=== PATIENT | male | born 1945 | race Caucasian/White ===

== ENCOUNTER → 2016-07-01 | Outpatient (CLI) | payer OTHER, BC ==
[~2016-07-01] MED LIST: AMLO-110 PO; ASPI1TAB83 PO; ATV1 PO; GLIP-197 PO; LISI40TA PO; METO25TA3 PO; PRT/20 PO; RXC5 PO; SIMV20TA2 PO; XRL10 PO
== END | disposition home or self-care (01) ==
LOC: C.PATH 15:02
PROVIDERS: ATTEND Podiatrist
DX: E11.42 Type 2 diabetes mellitus with diabetic polyneuropathy (principal); M79.671 Pain in right foot; D36.7 Benign neoplasm of other specified sites

== ENCOUNTER → 2016-07-13 | Outpatient (CLI) | payer OTHER, BC ==
[2016-07-13 12:05] LABS: BASO % 0.3 %; BASO ABS # 0.02 K/uL (0-0.2); COMPLETE YES; EOS % 2.3 %; HEMATOCRIT 46.1 % (42-52); IG% 0.3 %; LYMPH % 13.5 %; LYMPH ABS # 1.04 K/uL (1.2-3.4); MEAN CELL VOLUME 88.7 fL (80-100); MEAN CORPUSCULAR HEMOGLOBIN 29.8 pg (25-34); MEAN CORPUSCULAR HGB CONC 33.6 g/dl (32-36); MEAN PLATELET VOLUME 10.8 fL (7.4-10.4); MONO % 8.4 %; NEUT % 75.2 %; PLATELET COUNT 249 K/uL (130-400)
[2016-07-13 12:30] LABS: ALT/SGPT 28 U/L (12-78); BLOOD UREA NITROGEN 25 mg/dl (7-18); BUN/CREATININE RATIO 17.8 (10-20); CALCIUM 9.2 mg/dl (8.5-10.1); CARBON DIOXIDE 28 mmol/L (21-32); CHLORIDE 104 mmol/L (98-107); CHOLESTEROL 114 mg/dl (0-200); GLUCOSE 106 mg/dl (70-99); POTASSIUM 4.1 mmol/L (3.5-5.1); SODIUM 139 mmol/L (136-145)
[2016-07-13 12:33] LABS: ALB/GLOB RATIO 1.1 (0.9-2); ALKALINE PHOSPHATASE 73 U/L (45-117); AST/SGOT 17 U/L (15-37); CHOLESTEROL/HDL RATIO 3.5; HDL CHOLESTEROL 33 mg/dl; LDL CHOLESTEROL CALCULATED 62 mg/dl; TRIGLYCERIDES 95 mg/dl (0-150); VERY LOW DENSITY LIPOPROT CALC 19 mg/dl
[2016-07-13 12:53] LABS: ESTIMATED AVERAGE GLUCOSE 128 mg/dl; HA1C FLAG Normal (Normal)
[2016-07-13 13:44] LABS: URINE PROTIEN/CREAT RATIO 0.4 (0-0.2); URINE TOTAL PROTEIN 80.7 mg/dl (0-11.9)
== END | disposition home or self-care (01) ==
LOC: C.LAB 11:21
PROVIDERS: ATTEND Family Medicine
DX: N18.3 Chronic kidney disease, stage 3 (moderate) (principal); E11.22 Type 2 diabetes mellitus with diabetic chronic kidney disease; M79.1 Myalgia; E78.00 Pure hypercholesterolemia, unspecified

== ENCOUNTER → 2017-02-28 | Outpatient (CLI) | payer OTHER, BC ==
--- NOTE | 2017-02-28 12:15 | DIAGNOSTIC IMAGING REPORT ---
R KNEE 1 OR 2 VIEWS ROUTINE CLINICAL HISTORY: 71 years-old Male presenting with M25.561 Chronic pain of right knee. TECHNIQUE: Frontal and crosstable lateral views of the right knee were obtained. COMPARISON: None. FINDINGS: Chondrocalcinosis. Tricompartmental degenerative change with medial joint space loss and subchondral sclerosis. No knee joint effusion. No acute fracture or acute malalignment. Atherosclerosis. IMPRESSION: Tricompartmental degenerative changes worst in the medial compartment. Electronically signed by: Ciaran Miguel M.D. 02/28/2017 12:14 PM Dictated Date/Time: 02/28/2017 12:13 PM
== END | disposition home or self-care (01) ==
LOC: C.RAD 11:55
PROVIDERS: ATTEND Neuromusculoskeletal Medicine & OMM
DX: M25.561 Pain in right knee (principal)

== ENCOUNTER → 2017-03-04 | Outpatient (CLI) | payer OTHER, BC ==
--- NOTE | 2017-03-04 16:44 | DIAGNOSTIC IMAGING REPORT ---
RENAL ULTRASOUND CLINICAL HISTORY: Stage III chronic kidney disease. COMPARISON STUDY: None. TECHNIQUE: Sonography of the kidneys and the urinary bladder was performed. FINDINGS: The right kidney measures 10 cm in maximal dimension and the left measures 11.6 cm. There is no hydronephrosis. Bilateral renal cysts are noted, the largest of which is a 1.6 cm right renal cyst. Both ureteral jets were identified. Prostate is moderately enlarged. Mild renal cortical thinning is noted. There is increased renal echogenicity. IMPRESSION: 1. No hydronephrosis. 2. Mild renal cortical thinning and increased renal echogenicity suggestive of medical renal disease. 3. Small bilateral renal cysts. 4. Moderate enlargement of the prostate. Electronically signed by: Stephane Mosquera M.D. 03/04/2017 4:43 PM Dictated Date/Time: 03/04/2017 4:41 PM
== END | disposition home or self-care (01) ==
LOC: C.ULTRBC 14:52
PROVIDERS: ATTEND Internal Medicine Nephrology
DX: N18.3 Chronic kidney disease, stage 3 (moderate) (principal); N28.1 Cyst of kidney, acquired; N40.0 Benign prostatic hyperplasia without lower urinary tract symptoms

== ENCOUNTER → 2017-03-29 | Day surgery (SDC) | payer OTHER, BC ==
[2017-03-18 12:19] VITALS: BMI 27.0
[~2017-03-29] VITALS: Ht 180.3 cm; Wt 92.3 kg
[~2017-03-29] MED LIST changes: +ASPCH81X PO; -ASPI1TAB83 PO; -ATV1 PO; +CETI10TA84 PO; +CYAN100020 PO; +GLC/500 PO; +LIDOCAINE HCL 2% 2 ML VIAL (20MG/ML) ONE; +PANT40TA PO; +PROPOFOL IV EMULSION 10 MG/ML 20 ML VIAL IV ONE; -PRT/20 PO; +RIVA1TAB4 PO; -RXC5 PO; +SODIUM CHLORIDE 0.9% 500ML 500 ML IV ONE; -XRL10 PO
[2017-03-29 11:37] VITALS: Ht 180.3 cm; Wt 92.3 kg
--- NOTE | 2017-03-29 12:36 | Endo History and Physical ---
History & Physical Date of Service: Mar 29, 2017. Chief Complaint: HX OF POLYPS Referring Physician: DR MEJIA History of Present Illness 71 yo male who presents for colonoscopy secondary to history of colon polyps. Past Medical History Atrial Fibrillation, Diabetes, Arthritis, Reflux, High Cholesterol, Hypertension Past Surgical History Hx Cardiac Surgery: Yes (CARDIOVERSION X 3, CARDIAC ABLATION) Hx Internal Defibrillator: No Hx Pacemaker: No Hx Abdominal Surgery: No Hx of Implantable Prosthesis: No Hx Post-Op Nausea and Vomiting: No Hx Cancer Surgery: No Hx Thoracic Surgery: No Hx Orthopedic: Yes (LUMBAR SPINAL FUSION, RT KNEE ARTHROSCOPY) Hx Urinary Tract Surgery: No Family History None Social History Smoking Status: Former Smoker Hx Substance Use: No Hx Alcohol Use: Yes (OCCASIONALLY) Allergies Coded Allergies: Lactose Intolerance (GI) (Verified Allergy, Unknown, GI UPSET, 03/29/17) NO KNOWN DRUG ALLERGIES (Verified Allergy, Unknown, NKDA, 03/29/17) Current Medications Reported Home Medications Medications Dose Route/Sig Max Daily Dose Days Date Category Zyrtec (Cetirizine HCl) 10 Mg Tab 10 Mg PO HS 03/18/17 Reported Vitamin B12 (Cyanocobalamin) 1,000 Mcg Tab 1 Tab PO QPM 03/18/17 Reported Norvasc (Amlodipine Besylate) 5 Mg Tab 5 Mg PO QPM 03/18/17 Reported Zocor (Simvastatin) 20 Mg Tab 20 Mg PO QPM 03/18/17 Reported Xarelto (Rivaroxaban) 20 Mg Tab 20 Mg PO QPM 03/18/17 Reported Aspirin Chewable (Aspirin) 81 Mg Chew 81 Mg PO QAM 03/18/17 Reported Protonix (Pantoprazole Sodium) 40 Mg Tab 40 Mg PO QAM 03/18/17 Reported Toprol-Xl (Metoprolol Succinate) 25 Mg Tabcr 25 Mg PO QAM 03/18/17 Reported Zestril (Lisinopril) 40 Mg Tab 40 Mg PO QAM 03/18/17 Reported Glipizide Er (Glipizide) 5 Mg Tab 1 Tab PO QAM 03/18/17 Reported Glucophage (Metformin Hcl) 500 Mg Tab 500 Mg PO BID 03/18/17 Reported Vital Signs Weight (Kilograms): 92.27 Height (Feet): 5 Height (Inches): 11 Date Time Temp Pulse Resp B/P (MAP) Pulse Ox O2 Delivery O2 Flow Rate FiO2 12/12/17 11:53 36.5 96 18 156/92 (113) 97 Room Air Physical Exam General Appearance: WD/WN, no apparent distress Respiratory/Chest: Auscultation: breath sounds normal Cardiovascular: Heart Auscultation: RRR Abdomen: Bowel Sounds: normal Inspection & Palpation: soft, non-distended, no tenderness, guarding & rebound Assessment and Plan Assessment: 71 yo male who presents for colonoscopy secondary to history of colon polyps. Plan: Proceed with colonoscopy.
--- NOTE | 2017-03-29 13:06 | Discharge Instructions ---
Endoscopy Patient Instructions Date / Procedure(s) Performed Mar 29, 2017. Colonoscopy Allergy Information Coded Allergies: Lactose Intolerance (GI) (Verified Allergy, Unknown, GI UPSET, 03/29/17) NO KNOWN DRUG ALLERGIES (Verified Allergy, Unknown, NKDA, 03/29/17) Discharge Date / Findings Mar 29, 2017. Diverticulosis Internal hemorrhoids Medication Instructions Stopped Medication(s): metformin glucophage OK to resume all medications today as prescribed Reported Home Medications Medications Dose Route/Sig Max Daily Dose Days Date Category Zyrtec (Cetirizine HCl) 10 Mg Tab 10 Mg PO HS 03/18/17 Reported Vitamin B12 (Cyanocobalamin) 1,000 Mcg Tab 1 Tab PO QPM 03/18/17 Reported Norvasc (Amlodipine Besylate) 5 Mg Tab 5 Mg PO QPM 03/18/17 Reported Zocor (Simvastatin) 20 Mg Tab 20 Mg PO QPM 03/18/17 Reported Xarelto (Rivaroxaban) 20 Mg Tab 20 Mg PO QPM 03/18/17 Reported Aspirin Chewable (Aspirin) 81 Mg Chew 81 Mg PO QAM 03/18/17 Reported Protonix (Pantoprazole Sodium) 40 Mg Tab 40 Mg PO QAM 03/18/17 Reported Toprol-Xl (Metoprolol Succinate) 25 Mg Tabcr 25 Mg PO QAM 03/18/17 Reported Zestril (Lisinopril) 40 Mg Tab 40 Mg PO QAM 03/18/17 Reported Glipizide Er (Glipizide) 5 Mg Tab 1 Tab PO QAM 03/18/17 Reported Glucophage (Metformin Hcl) 500 Mg Tab 500 Mg PO BID 03/18/17 Reported Provider Instructions Activity Restrictions - No exercising or heavy lifting for 24 hours. - Do not drink alcohol the day of the procedure. - Do not drive a car or operate machinery until the day after the procedure. - Do not make any important decisions or sign important papers in 24 hours after the procedure. Following Day: - Return to full activity which may include returning to work/school. Diet Start your diet with liquids and light foods (jello, soup, juice, toast). Then eat your usual diet if not nauseated. Treatment For Common After Affects For mild abdominal pain, bloating, or excessive gas: - Rest - Eat lightly - Lie on right side Follow-Up Information Follow-up with DR MEJIA as scheduled Anesthesia Information What You Should Know You have had a procedure that required some medicine to reduce anxiety and discomfort. This treatment is called moderate sedation. After receiving the treatment, you may be sleepy, but you will be able to breathe on your own. The effects of the treatment may last for several hours. Follow these instructions along with Activity/Diet recommendations noted above: * Do NOT do anything where dizziness or clumsiness would be dangerous. * Rest quietly at home today, then you can be up and about tomorrow. * Have a responsible person stay with you the rest of today. * You may have had an I.V. today. If so, you may take the dressing off later today. Recommendations Call your doctor if: * Trouble breathing * Continuous vomiting for more than 24 hours * Temperature above 101 degrees * Severe abdominal pain or bloating * Pain not relieved by pain medicine ordered * There is increased drainage or redness from any incision * A large amount of rectal bleeding greater than 2-3 tablespoons. (If you had a polyp/s removed or have hemorrhoids, a small amount of blood - from the rectum is to be expected.) * You have any unanswered questions or concerns. IN THE EVENT OF A SERIOUS EMERGENCY, GO TO THE NEAREST EMERGENCY ROOM Your discharge instructions were prepared by provider Yohan Eubanks. Patient Instructions Signature Page Leighton Ramirez Patient (or Guardian) Signature/Date: I have read and understand the instructions given to me by my caregivers. Caregiver/RN/Doctor Signature/Date: The above-named patient and/or guardian has received patient instructions on this date. + Original Patient Signature Page (only) stays with chart. Please make copy for patient.
--- NOTE | 2017-03-29 13:16 | GI REPORT ---
Procedure Date: 03/29/2017 12:46 PM Procedure: Colonoscopy Indications: High risk colon cancer surveillance: Personal history of colonic polyps Medicines: Monitored Anesthesia Care Complications: No immediate complications. Estimated Blood Loss: Estimated blood loss: none. Procedure: Pre-Anesthesia Assessment: - Prior to the procedure, a History and Physical was performed, and patient medications and allergies were reviewed. The patient's tolerance of previous anesthesia was also reviewed. The risks and benefits of the procedure and the sedation options and risks were discussed with the patient. All questions were answered, and informed consent was obtained. Prior Anticoagulants: The patient last took aspirin 1 day and Xarelto (rivaroxaban) 5 days prior to the procedure. ASA Grade Assessment: III - A patient with severe systemic disease. After reviewing the risks and benefits, the patient was deemed in satisfactory condition to undergo the procedure. After I obtained informed consent, the scope was passed under direct vision. Throughout the procedure, the patient's blood pressure, pulse, and oxygen saturations were monitored continuously. The scope was introduced through the anus and advanced to the terminal ileum. The colonoscopy was performed without difficulty. The patient tolerated the procedure well. The quality of the bowel preparation was good. The terminal ileum, ileocecal valve, appendiceal orifice, and rectum were photographed. Findings: The perianal and digital rectal examinations were normal. A few small-mouthed diverticula were found in the entire colon. Non-bleeding internal hemorrhoids were found during retroflexion. The hemorrhoids were small. Impression: - Diverticulosis in the entire examined colon. - Non-bleeding internal hemorrhoids. - No specimens collected. Recommendation: - Resume previous diet. - Continue present medications. - Repeat colonoscopy in 5 years for surveillance. - Return to primary care physician as previously scheduled. Yohan Eubanks DO 03/29/2017 1:15:44 PM This report has been signed electronically. Note Initiated On: 03/29/2017 12:46 PM I attest to the content of the Intraoperative Record and orders documented therein, exceptions below
[2017-03-29 13:35] VITALS: BP 136/97; PULSE 84; O2SAT 96
--- NOTE | 2017-03-29 13:37 | Anesthesiology Progress Note ---
Anesthesia Post Op Note Date & Time Mar 29, 2017 at 13:36 Vital Signs Pain Intensity: 0 Vital Signs Past 12 Hours Date Time Temp Pulse Resp B/P (MAP) Pulse Ox O2 Delivery O2 Flow Rate FiO2 03/29/17 13:23 78 18 130/101 (111) 96 Room Air 03/29/17 13:09 82 16 120/69 (86) 97 Room Air 03/29/17 11:53 36.5 96 18 156/92 (113) 97 Room Air Notes Mental Status: alert / awake / arousable, participated in evaluation Pt Amnestic to Procedure: Yes Nausea / Vomiting: adequately controlled Pain: adequately controlled Airway Patency, RR, SpO2: stable & adequate BP & HR: stable & adequate Hydration State: stable & adequate Anesthetic Complications: no major complications apparent
== END | disposition home or self-care (01) ==
LOC: C.GI 10:12
PROVIDERS: ATTEND Internal Medicine
DX: Z12.11 Encounter for screening for malignant neoplasm of colon (principal); K57.30 Diverticulosis of large intestine without perforation or abscess without bleeding; K64.8 Other hemorrhoids; Z86.010 Personal history of colon polyps; I48.91 Unspecified atrial fibrillation; I10 Essential (primary) hypertension; E78.00 Pure hypercholesterolemia, unspecified; E11.9 Type 2 diabetes mellitus without complications; K21.9 Gastro-esophageal reflux disease without esophagitis; M19.90 Unspecified osteoarthritis, unspecified site; Z87.891 Personal history of nicotine dependence; Z79.01 Long term (current) use of anticoagulants; Z79.84 Long term (current) use of oral hypoglycemic drugs; Z79.899 Other long term (current) drug therapy

== ENCOUNTER → 2017-05-03 | Outpatient (CLI) | payer OTHER, BC ==
[~2017-05-03] MED LIST changes: -LIDOCAINE HCL 2% 2 ML VIAL (20MG/ML) ONE; -PROPOFOL IV EMULSION 10 MG/ML 20 ML VIAL IV ONE; -SODIUM CHLORIDE 0.9% 500ML 500 ML IV ONE
== END | disposition home or self-care (01) ==
LOC: C.PATHSPEC 16:26
PROVIDERS: ATTEND Dermatology
DX: L82.1 Other seborrheic keratosis (principal); L82.0 Inflamed seborrheic keratosis

== ENCOUNTER → 2017-05-30 | Outpatient (CLI) | payer OTHER, BC ==
[2017-05-30 14:43] LABS: BASO % 0.3 %; BASO ABS # 0.02 K/uL (0-0.2); EOS ABS # 0.15 K/uL (0-0.5); HEMATOCRIT 46.9 % (42-52); HEMOGLOBIN 16.4 g/dL (14.0-18.0); IG# 0.02 K/uL (0.00-0.02); LYMPH % 14.8 %; LYMPH ABS # 1.11 K/uL (1.2-3.4); MEAN CELL VOLUME 87.8 fL (80-100); MEAN CORPUSCULAR HEMOGLOBIN 30.7 pg (25-34); MEAN PLATELET VOLUME 10.4 fL (7.4-10.4); MONO % 8.5 %; MONO ABS # 0.64 K/uL (0.11-0.59); NEUT % 74.1 %; NEUT ABS # 5.56 K/uL (1.4-6.5); PLATELET COUNT 261 K/uL (130-400); RED CELL DISTRIBUTION WIDTH SD 41.6 fL (36.4-46.3)
[2017-05-30 15:18] LABS: ALBUMIN 3.9 gm/dl (3.4-5.0); BLOOD UREA NITROGEN 16 mg/dl (7-18); CALCIUM 9.3 mg/dl (8.5-10.1); CARBON DIOXIDE 28 mmol/L (21-32); CREATININE 1.68 mg/dl (0.60-1.40); GLUCOSE 174 mg/dl (70-99); POTASSIUM 4.1 mmol/L (3.5-5.1); SODIUM 136 mmol/L (136-145)
[2017-05-30 15:19] LABS: PHOSPHORUS 2.8 mg/dl (2.5-4.9)
[2017-05-31 06:03] LABS: HEMOGLOBIN A1C 8.7 % (4.5-5.6)
== END | disposition home or self-care (01) ==
LOC: C.LAB 13:56
PROVIDERS: ATTEND Internal Medicine Nephrology
DX: Z00.00 Encounter for general adult medical examination without abnormal findings (principal); N18.3 Chronic kidney disease, stage 3 (moderate)

== ENCOUNTER → 2017-07-27 | Outpatient (CLI) | payer OTHER, BC ==
[2017-07-27 12:43] LABS: BLOOD UREA NITROGEN 25 mg/dl (7-18); CALCIUM 9.3 mg/dl (8.5-10.1); CARBON DIOXIDE 27 mmol/L (21-32); CREATININE 1.49 mg/dl (0.60-1.40); GLUCOSE 100 mg/dl (70-99); PHOSPHORUS 3.1 mg/dl (2.5-4.9); POTASSIUM 4.1 mmol/L (3.5-5.1); SODIUM 140 mmol/L (136-145)
== END | disposition home or self-care (01) ==
LOC: C.LAB 10:45
PROVIDERS: ATTEND Internal Medicine Nephrology
DX: N18.3 Chronic kidney disease, stage 3 (moderate) (principal)

== ENCOUNTER 2019-01-12 06:09 | Inpatient (IN) ==
--- NOTE | 2018-12-25 13:04 | PAT Medication Instructions ---
Medication Instructions Date of Service December 25, 2018 Home Medications amlodipine 5 mg PO HS aspirin [Aspir-81] 81 mg PO QAM cetirizine 10 mg PO HS cyanocobalamin (vitamin B-12) [Vitamin B-12] 1,000 mcg PO QPM finasteride 5 mg PO QAM lisinopril 40 mg PO QAM Xarelto 20 mg PO QPM fluticasone propionate [Flonase Allergy Relief] 2 sprays INTNAS HS metoprolol succinate 25 mg PO QAM pantoprazole 20 mg PO QAM simvastatin 20 mg PO QPM glipizide ER 5 mg tablet, extended release 24 hr 10 mg PO DAILY ASK your prescriber and surgeon aspirin [Aspir-81] 81 mg PO QAM Xarelto 20 mg PO QPM DO NOT take the morning of surgery lisinopril 40 mg PO QAM glipizide ER 5 mg tablet, extended release 24 hr 10 mg PO DAILY Take morning of surgery With a small sip of water, OTHERWISE NOTHING TO EAT OR DRINK AFTER MIDNIGHT: finasteride 5 mg PO QAM metoprolol succinate 25 mg PO QAM pantoprazole 20 mg PO QAM Take evening before surgery amlodipine 5 mg PO HS cetirizine 10 mg PO HS cyanocobalamin (vitamin B-12) [Vitamin B-12] 1,000 mcg PO QPM fluticasone propionate [Flonase Allergy Relief] 2 sprays INTNAS HS simvastatin 20 mg PO QPM Other Notes If you have any questions please call us at [phone] or [phone] or or [phone]
--- NOTE | 2018-12-26 08:36 | Anesthesiology Consultation ---
Date of Service December 26, 2018 Assessment & Plan (1) Encounter for pre-operative examination: - Awaiting review preop testing. - A. flutter noted on preop EKG. Patient with known hx a. fib but no documented hx of a. flutter. Per chart review, patient has not seen cardio in 1+ years. Discussed with Dr. Ellison, given patient's good functional status, will leave at PCP discretion if cardiac preop evaluation needed. Await PCP clearance scheduled 12/29 (Dr. Lance Lagos; [facility] [place]). - ASA/Xarelto instructions per surgeon/prescriber. - Check BSG AM DOS Chart Review Chart Review: Patient seen in Pre Admission Testing Teaching & Discussion Pre-Anesthesia Teaching/Discussion Notes: Instructed NPO after midnight before surgery,except medications with 15 cc of water. Medication instructions provided according to the PAT guidelines. History Surgery Operation Date: 01/12/19 07:45 Proposed Procedures p L2-L4 Decompression and Fusion; L4-L5 Hardware Removal with Spinal Cord Monitoring - Robby Alvarez, Height/Weight Height: 5 ft 11 in Weight: 89.7 kg Allergies Allergy/AdvReac Type Severity Reaction Status Date / Time lactose Allergy Unknown GI UPSET Verified 12/19/18 15:03 No Known Drug Allergies Allergy Unknown NKDA Verified 12/19/18 15:03 Medications Home Medications Medication Instructions Recorded Confirmed Last Taken amlodipine 5 mg PO HS 09/14/18 12/19/18 09/28/18 aspirin [Aspir-81] 81 mg PO QAM 09/14/18 12/19/18 09/26/18 cetirizine 10 mg PO HS 09/14/18 12/19/18 09/28/18 cyanocobalamin (vitamin B-12) 1,000 mcg PO QPM 09/14/18 12/19/18 09/28/18 [Vitamin B-12] finasteride 5 mg PO QAM 09/14/18 12/19/18 09/29/18 0700 lisinopril 40 mg PO QAM 09/14/18 12/19/18 09/28/18 flash glucose scanning reader #1 ea 12/12/18 12/19/18 Unknown flash glucose sensor kit #1 ea 12/12/18 12/19/18 Unknown Xarelto 20 mg PO QPM 12/19/18 12/19/18 Unknown fluticasone propionate [Flonase 2 sprays INTNAS HS 12/19/18 12/19/18 Unknown Allergy Relief] metoprolol succinate 25 mg PO QAM 12/19/18 12/19/18 Unknown pantoprazole 20 mg PO QAM 12/19/18 12/19/18 Unknown simvastatin 20 mg PO QPM 12/19/18 12/19/18 Unknown glipizide ER 5 mg tablet, extended 10 mg PO DAILY #180 tab 12/22/18 12/22/18 Unknown release 24 hr Past Medical History Medical History Atrial fibrillation on xarelto Chronic kidney disease stage III Degenerative disc disease Diabetes mellitus, type 2 NIDDM Diabetic neuropathy GERD (gastroesophageal reflux disease) controlled Hyperlipidemia Hypertension Exercise / Class Metabolic Activity II 4-5 Yardwork/Stairs/Walk up hill Past Family History Family History Father Stroke Past Surgical History Surgical History History of arthroscopy of right knee History of cardiac radiofrequency ablation History of cardioversion History of colonoscopy History of esophagogastroduodenoscopy (EGD) History of left cataract surgery History of lumbar fusion History of photorefractive keratectomy (PRK) History of wisdom tooth extraction Hx of LASIK Past Anesthesia History No Hx of Anesthesia Complications and No Family Hx of Anesthesia Complications History of PONV No Hx of PONV and No Hx of Motion Sickness Social History Smoking Status: Former smoker (Quit 50 years ago) tobacco type: cigarettes Do You Dip or Chew Tobacco: No Smoking End Date: Quit 50+ YEARS AGO Hx Alcohol Use: Yes Alcohol type: wine alcohol intake frequency: a few times a week Hx Substance Use: No substance use type: does not use Review of Systems Reflux controlled. URI symptoms including minimal non-productive cough significantly improved. Patient denies chest pain, shortness of breath, dyspnea on exertion, wheezing, palpitations. Physical Exam Vital Signs VITALS BP 148/84 P 70 TEMP 97.8 SP02 97%RA RESP 18 PHYSICAL Full neck and c-spine range of motion. Full TMJ range of motion. TMD 3 finger breaths Mallampati Score 2 Dentition: upper partial Lungs: clear throughout to auscultation Cardiac: regular rate and rhythm, no murmurs noted Spine: normal Carotid arteries: negative bruit Extremities: no edema Testing Laboratory Results 12/25/18 SODIUM 141 POTASSIUM 4.2 CHLORIDE 107 CO2 26 BUN 24 CREATININE 1.52 (baseline creatinine 1.4-1.6 per chart review) GLUCOSE 118 HGBA1C 8.0% (surgeon made aware) Chest X-Ray Date: 10/04/18 No acute process of the chest.
[2018-12-26 10:59] LABS: Basophils # (auto) 0.03 K/uL (0-0.2); Basophils % (auto) 0.4 %; Eosinophils # (auto) 0.17 K/uL (0-0.5); Eosinophils % (auto) 2.5 %; Hemoglobin 14.7 g/dL (14.0-18.0); Immature Granulocytes # (auto) 0.02 K/uL (0.00-0.02); Immature Granulocytes % (auto) 0.3 %; Lymphocytes # (auto) 1.27 K/uL (1.2-3.4); Lymphocytes % (auto) 18.7 %; Mean Corpuscular Hemoglobin 30.4 pg (25-34); Mean Corpuscular Hgb Conc 33.4 g/dL (32-36); Mean Corpuscular Volume 91.1 fL (80-100); Mean Platelet Volume 11.6 fL (7.4-10.4); Monocytes # (auto) 0.61 K/uL (0.11-0.59); Neutrophils # (auto) 4.69 K/uL (1.4-6.5); Neutrophils % (auto) 69.1 %; Platelet Count 229 K/uL (130-400); RDW Coefficient of Variation 13.8 % (11.5-14.5); RDW Standard Deviation 45.9 fL (36.4-46.3); Red Blood Count 4.83 M/uL (4.7-6.1); White Blood Count 6.79 K/uL (4.8-10.8)
[2018-12-26 11:03] LABS: Appearance Urine Clear (Clear); Bacteria Urine Automated Negative (Negative); Bilirubin Urine Negative (Negative); Blood Urine Negative (Negative); Cast Urine Automated 0 /lpf (0-5); Color Urine Yellow; Epithelial Cell Urine Auto 0-5 /lpf (0-5); Glucose Urine UA Negative (Negative); Ketones Urine Negative (Negative); Leukocyte Esterase Urine Negative (Negative); Nitrite Urine Negative (Negative); Protein Urine 2+ (Negative); RBC Urine Automated 0-4 /hpf (0-4); Specific Gravity Urine 1.021 (1.000-1.030); Urobilinogen Urine Negative (Negative); pH Urine 5.5 (4.5-7.5)
[2018-12-26 11:11] LABS: INR 1.6 (0.9-1.1); Partial Thromboplastin Ratio 1.5; Partial Thromboplastin Time 41.4 Seconds (21.0-31.0); Prothrombin Time 15.8 Seconds (9.0-12.0)
[~2019-01-12 06:09] MED LIST changes: +ACETAMINOPHEN 500 MG TAB PO SCH; -AMLO-110 PO; -ASPCH81X PO; +CEFAZOLIN 2000MG 2,000 MG/15 ML SYR IV SCH; -CETI10TA84 PO; -CYAN100020 PO; +CeleBREX 200 MG CAP PO SCH; +GABAPENTIN 300 MG CAP PO SCH; -GLC/500 PO; -GLIP-197 PO; -LISI40TA PO; +LR 15ML/HR IV SCH; -METO25TA3 PO; -PANT40TA PO; -RIVA1TAB4 PO; -SIMV20TA2 PO
[2019-01-12] MEDS ORDERED: MIDAZOLAM HCL 1 MG/ML 2ML VIAL ONE (06:38)
[2019-01-12] MEDS ORDERED: HYDROmorphone INJ 2 MG/ML SYR/VIAL ONE ×2 (06:39→10:09)
[2019-01-12] MEDS ORDERED: fentaNYL citrate 100 MCG/2 ML VIAL ONE ×4 (06:39→09:39)
[2019-01-12] MEDS ORDERED: ROCURONIUM BROMIDE 10 MG/ML 5 ML VIAL ONE (06:43)
[2019-01-12] MEDS ORDERED: DEXAMETHASONE SOD INJ 4 MG/ML VIAL ONE (06:43)
[2019-01-12] MEDS ORDERED: ONDANSETRON INJ 2 MG/ML 2 ML VIAL ONE (06:43)
[2019-01-12] MEDS ORDERED: LIDOCAINE HCL 2% 2 ML VIAL/AMP(20MG/ML) INFIL ONE (06:43)
[2019-01-12] MEDS ORDERED: PROPOFOL IV EMULSION 10 MG/ML 20 ML VIAL IV ONE ×2 (06:43→09:38)
[2019-01-12] MEDS ORDERED: GLYCOPYRROLATE 0.2 MG/ML VIAL ONE (06:43)
[2019-01-12] MEDS ORDERED: NEOSTIGMINE METHYLSULFATE 1 MG/ML 10ML VIAL ONE (06:43)
[2019-01-12] MEDS ORDERED: BUPIVACAINE/EPINEPHRINE 0.5% MPF 1:200,000 30 ML VIAL ONE (06:57)
[2019-01-12] MEDS ORDERED: BACITRACIN INJ 50,000 UNIT VIAL ONE (06:57)
[2019-01-12] MEDS ORDERED: LARYING-O-JET KIT (LTA) ONE ×2 (07:06→10:09)
[2019-01-12] MEDS ORDERED: LABETALOL HCL IV 5 MG/ML 20ML IV PRN (07:06)
[2019-01-12] MEDS ORDERED: ATROPINE SULFATE 0.1 MG/ML 10ML SYR IV PRN (07:06)
[2019-01-12] MEDS ORDERED: ONDANSETRON INJ 2 MG/ML 2 ML VIAL IV PRN ×2 (07:06→11:44)
[2019-01-12] MEDS ORDERED: HYDROmorphone INJ 1 MG/ML SYRINGE IV PRN (07:06)
--- NOTE | 2019-01-12 07:24 | History & Physical Bridge Note ---
Date of Service January 12, 2019 History & Physical Bridge Note I have examined the patient, reviewed the History & Physical and in the interval since the performance of the History & Physical I have noted the following changes of clinical significance: no changes noted
--- NOTE | 2019-01-12 07:25 | History & Physical Report ---
Date of Service January 12, 2019 Assessment & Plan (1) Lumbar stenosis with neurogenic claudication: Decompression and fusion L2-L4 hardware removal L4-5 Present on Admission?: Yes History of Present Illness Chief Complaint: Back and bilateral leg pain Primary Care Provider: Lance Lagos, DO This is a 73-year-old male well-known to us that presents with chronic persistent back and bilateral leg pain. After failing extensive course of nonoperative care he is here for surgical intervention. Allergies Allergy/AdvReac Type Severity Reaction Status Date / Time lactose Allergy Unknown GI UPSET Verified 01/12/19 06:37 No Known Drug Allergies Allergy Unknown NKDA Verified 01/12/19 06:37 Home Medications Home Medications Medication Instructions Recorded Confirmed Type amlodipine 5 mg PO HS 09/14/18 01/12/19 History aspirin [Aspir-81] 81 mg PO QAM 09/14/18 01/12/19 History cetirizine 10 mg PO HS 09/14/18 01/12/19 History cyanocobalamin (vitamin B-12) 1,000 mcg PO QPM 09/14/18 01/12/19 History [Vitamin B-12] finasteride 5 mg PO QAM 09/14/18 01/12/19 History lisinopril 40 mg PO QAM 09/14/18 01/12/19 History flash glucose scanning reader #1 ea 12/12/18 01/05/19 History flash glucose sensor kit #1 ea 12/12/18 01/05/19 History Xarelto 20 mg PO QPM 12/19/18 01/12/19 History fluticasone propionate [Flonase 2 sprays INTNAS HS 12/19/18 01/12/19 History Allergy Relief] metoprolol succinate 25 mg PO QAM 12/19/18 01/12/19 History pantoprazole 20 mg PO QAM 12/19/18 01/12/19 History simvastatin 20 mg PO QPM 12/19/18 01/12/19 History glipizide ER 5 mg tablet, extended 10 mg PO DAILY #180 tab 12/22/18 01/12/19 History release 24 hr Past Med/Surg History Medical History Atrial fibrillation on xarelto Chronic kidney disease stage III Degenerative disc disease Diabetes mellitus, type 2 NIDDM Diabetic neuropathy GERD (gastroesophageal reflux disease) controlled Hyperlipidemia Hypertension Surgical History History of arthroscopy of right knee History of cardiac radiofrequency ablation History of cardioversion History of colonoscopy History of esophagogastroduodenoscopy (EGD) History of left cataract surgery History of lumbar fusion History of photorefractive keratectomy (PRK) History of wisdom tooth extraction Hx of LASIK Family History Father Stroke Social History Preferred Language: Chinese Communication Ability: Effective Visual Impairment: No Limitations Hearing Ability: Normal Reducing System Operator Required: No Beliefs That Will Affect Care: None marital status: Current Living Situation: Spouse current occupational status: retired Other Information That Helps Us Care for You: No Feels Safe at Home: Yes Safety Concerns: Feels Safe At This Time Smoking Status: Former smoker (Quit 50 years ago) Tobacco Type: cigarettes ; Do You Dip or Chew Tobacco: No ; Smoking End Date: Quit 50+ YEARS AGO ; Second Hand Exposure: No ; Tobacco Cessation Education Requested by Patient: No Hx Alcohol Use: Yes Alcohol type: wine Hx Substance Use: No Dental Care, Regularly: Yes Physical Activity Frequency: Does not Exercise Physical Exam Physical Exam: Patient is alert and oriented neurologically intact. Results & Data Vital Signs (Past 12 Hours) Vital Signs Temp Pulse Resp BP Pulse Ox 01/12/19 06:44 36.6 C 79 20 172/99 H 100
[2019-01-12] MEDS ORDERED: FLOSEAL HEMOSTATIC MATRIX 10ML TOP ONE (08:17)
[2019-01-12] MEDS ORDERED: SODIUM CHLORIDE 0.9% INJ 10 ML VIAL ONE (09:20)
[2019-01-12] MEDS ORDERED: PHENYLEPHRINE 100MCG/ML 5ML SYR ONE (10:09)
[2019-01-12] MEDS ORDERED: ePHEDrine sulfate 50 MG/ML SYR ONE (10:09)
[2019-01-12] MEDS ORDERED: SODIUM CHLORIDE 0.9% 250 ML IV PRN (10:15)
--- NOTE | 2019-01-12 10:25 | Fluoroscopy Report ---
LUMBAR SPINE, INTRAOPERATIVE FLUOROSCOPY HISTORY: L2-L5 decompression and fusion. FLUOROSCOPY TIME: 18 seconds. FINDINGS: Intraoperative fluoroscopy was provided for the lumbar spine. 3 fluoroscopic spot images we re obtained. Posterior decompression fusion from L2 through L5 with pedicle screws and rods. The hard gutierres appears intact. IMPRESSION: Fluoroscopy provided for a L2-L5 posterior decompression and fusion. Electronically signed by: Michael Du M.D. 01/12/2019 10:24 AM
--- NOTE | 2019-01-12 10:30 | Operative Report ---
Post Operative Report Pre & Post Diagnosis Operation Date: 01/12/19 07:45 Pre-Op Diagnosis: Lumbar spinal stenosis with neurogenic claudication. Post-Op Diagnosis: Same Procedure Operation Date: 01/12/19 07:45 Actual Procedures #1 removal of posterior instrumentation L4-5 per #2 exploration of fusion L4-5 per #3 lumbar decompression with bilateral medial facetectomies and for aminotomies L2-3 L3-4. #4 posterior spinal fusion L2-3 L3-4. #5 placement posterior instrumentation L2-3 L3-4 L4-5. #6 interbody fusion L2-3 and L3-4. #7 placed a peek cage 10 x 22 mm at L2-3 and L3-4. #8 placement of local autograft in the posterior lateral gutters per #9 placement infuse collagen sponge, master graft in the posterior lateral gutters and ostial amp and interbody spaces. Surgeon Robby Alvarez, DO Warp Hauler None Estimated Blood Loss 225 Findings Consistent with Post-Op Diagnosis Specimens None Indications This is a 73-year-old male well-known to me who presents with above-mentioned diagnosis after failing extensive course of nonoperative care like to undergo the above-mentioned procedure. Description of Procedure Patient was met with identified and informed consent obtained. Patient was then taken to the operative suite underwent intubation placed in a prone position on the Domenic table on top of the Fernando frame. All bony prominences well-padded eyes inspected to ensure no external pressure placed upon the peer at this point the lumbar spine was prepped and draped in normal sterile fashion. Sharp dissection with the assistance of Bovie cautery was performed down to and exposing the lamina and transverse processes of L2-L3 and instrumentation L4-L5 bilaterally. Then proceed remove the hardware bilaterally at L4-5 explore the fusion mass noting it to be intact. Then performed a complete laminectomy of L2-3 and L2 from a caudal cephalad fashion including medial facetectomies and foraminotomies addressing severe stenosis. Pedicle screws were then placed in L to L3-L4-L5 bilaterally with assistance of fluoroscopy the process usama placed. By way of a trans-foraminal approach on the right complete discectomy of L3-4 was performed in plate graded to subcortical being bone and a 10 x 22 mm peek cage filled with osteo-amp bone graft tapped in position. Then proceeded to L to [address] of a transforaminal approach on the left complete discectomy performed in place coated to subcortical being bone and a 10 x 22 mm peek cage filled with ostium bone graft tapped in position. The rods were then locked in final position bilaterally. Transverse processes of L2-L3-L4 burred to subcortical bleeding bone. Infuse collagen sponge mass graft and local autograft placed in the posterior lateral gutters. 15 round DEEPTHI drain inserted. Incision was then closed with 1 Vicryl in the fascia 2-0 Vicryl subtenons seen for Monocryl for final skin closure. Steri-Strip sterile dressings placed. Patient awakened taken to PACU stable condition. Please note spinal cord monitoring was utilized that procedure no changes noted. I attest to the content of the Intraoperative Record and any orders documented therein. Any exceptions are noted below.
[2019-01-12] MEDS ORDERED: ALBUMIN HUMAN 5% 12.5 GM/250 ML VIAL IV ONE (10:40)
--- NOTE | 2019-01-12 11:12 | Anesthesiology Progress Note ---
Date of Service January 12, 2019 Anesthesia Post Procedure Vital Signs Vital Signs: Temp Pulse Pulse Resp BP Pulse Ox 01/12/19 11:00 36.3 C L 53 L 14 136/80 100 01/12/19 10:50 55 L 14 152/84 H 100 01/12/19 10:40 54 L 14 178/88 H 100 01/12/19 10:31 36.0 C L 55 L 14 152/69 H 100 01/12/19 06:44 36.6 C 79 20 172/99 H 100 Transfer of Care Handoff Completed per policy Notes Mental Status: alert / awake / arousable Patient Amnestic to Procedure: Yes Nausea / Vomiting: adequately controlled Pain: adequately controlled Airway Patency, RR, SpO2: stable & adequate BP & HR: stable & adequate Hydration State: stable & adequate Anesthetic Complications: no major complications apparent
[2019-01-12] MEDS ORDERED: TRAMADOL HCL 50 MG TABLET PO PRN (11:44)
[2019-01-12] MEDS ORDERED: PROMETHAZINE HCL 12.5 MG in SODIUM CHLORIDE 0.9% 50 ML IV PRN (11:44)
[2019-01-12] MEDS ORDERED: LORazepam 0.5 MG TAB PO PRN (11:44)
[2019-01-12] MEDS ORDERED: FAMOTIDINE 20 MG TAB PO PRN (11:44)
[2019-01-12] MEDS ORDERED: SOD PHOSPHATE/SOD BIPHOSPHATE ENEMA 132 ML BTL PR PRN (11:44)
[2019-01-12] MEDS ORDERED: DO NOT ADMINISTER FLU VACCINE PRN (11:44)
[2019-01-12] MEDS ORDERED: ALUMINUM/MAGNESIUM SUSP 30 ML UDC PO PRN (11:44)
[2019-01-12] MEDS ORDERED: NALOXONE HCL 0.4 MG/1 ML VIAL/CARP IV PRN (11:44)
[2019-01-12] MEDS ORDERED: ACETAMINOPHEN 1,000 MG/100 ML VIAL IV PRN (11:44)
[2019-01-12] MEDS ORDERED: HYDROmorphone INJ 0.5 MG/0.5 ML SYR IV PRN (11:44)
[2019-01-12] MEDS ORDERED: DO NOT ADMINISTER PNEUMOCOCCAL VACCINE PRN (11:44)
[2019-01-12] MEDS ORDERED: MAGNESIUM HYDROXIDE SUSP 30 ML UDC PO PRN (11:44)
[2019-01-12] MEDS ORDERED: METOCLOPRAMIDE HCL INJ 5 MG/ML 2 ML VIAL IV PRN (11:44)
[2019-01-12] MEDS ORDERED: ONDANSETRON 4 MG TAB PO PRN (11:44)
[2019-01-12] MEDS ORDERED: bisacodyL 10 MG SUPP PR PRN (11:44)
[2019-01-12] MEDS ORDERED: LORazepam 0.5 MG/1 ML VIAL IV PRN (11:44)
[2019-01-12] MEDS: KETOROLAC TROMETHAMINE 15 MG/ML VIAL IV SCH ×2 (13:37→19:59)
[2019-01-12] MEDS: glipiZIDE 5 MG TAB PO SCH (13:37)
[2019-01-12] MEDS: CEFAZOLIN 2000MG 2,000 MG/15 ML SYR IV SCH ×2 (15:50→23:56)
[2019-01-12] MEDS ORDERED: PHARMACY GLYCEMIC MGMT CONSULT PRN (18:28)
[2019-01-12] MEDS ORDERED: DEXTROSE 50% 50 ML SYRINGE IV PRN (18:45)
[2019-01-12] MEDS ORDERED: GLUCOSE 10 TABS/TUBE PO PRN (18:45)
[2019-01-12] MEDS ORDERED: GLUCAGON FOR INJ 1 MG VIAL IM PRN (18:45)
[2019-01-12] MEDS ORDERED: GLUCOSE 40% GEL 15 GM TUBE PO PRN (18:45)
[2019-01-12] MEDS ORDERED: INSULIN GLARGINE SOLOSTAR 100 UNITS/ML 3 ML PEN SC ONE (19:00)
[2019-01-12] MEDS: SODIUM CHLORIDE 0.9% 1000ML 1,000 ML IV SCH (19:51)
[2019-01-12] MEDS: INSULIN ASPART 100 UNITS/ML 3 ML PEN SC SCH ×2 (19:55→21:12)
[2019-01-12] MEDS ORDERED: Nursing to Pharmacy Communication ONE (20:04)
[2019-01-12] MEDS: DOCUSATE SODIUM/SENNA 50/8.6MG TAB PO SCH (20:08)
[2019-01-12] MEDS: AMLODIPINE BESYLATE 5 MG TAB PO SCH (20:08)
[2019-01-12] MEDS: CYANOCOBALAMIN 500 MCG TABLET (VITAMIN B-12) PO SCH (20:09)
[2019-01-12] MEDS: CETIRIZINE HCL 10 MG TABLET PO SCH (20:10)
[2019-01-12] MEDS: SIMVASTATIN 20 MG TAB PO SCH (20:10)
[2019-01-13] MEDS: INSULIN ASPART 100 UNITS/ML 3 ML PEN SC SCH ×6 (00:13→21:18)
[2019-01-13] MEDS: KETOROLAC TROMETHAMINE 15 MG/ML VIAL IV SCH ×3 (01:23→09:41)
[2019-01-13] MEDS: POLYETHYLENE (MIRALAX) 17 GM PACK PO SCH ×4 (05:25→23:15)
[2019-01-13] MEDS ORDERED: Nursing to Pharmacy Communication ONE (05:26)
[2019-01-13] MEDS: SODIUM CHLORIDE 0.9% 1000ML 1,000 ML IV SCH (05:59)
[2019-01-13 06:05] LABS: Basophils # (auto) 0.01 K/uL (0-0.2); Basophils % (auto) 0.1 %; Hematocrit (blood only) 38.8 % (42-52); Hemoglobin 13.3 g/dL (14.0-18.0); Immature Granulocytes # (auto) 0.05 K/uL (0.00-0.02); Immature Granulocytes % (auto) 0.3 %; Lymphocytes # (auto) 0.76 K/uL (1.2-3.4); Mean Corpuscular Hemoglobin 31.1 pg (25-34); Mean Corpuscular Hgb Conc 34.3 g/dL (32-36); Mean Corpuscular Volume 90.7 fL (80-100); Mean Platelet Volume 10.6 fL (7.4-10.4); Monocytes # (auto) 0.93 K/uL (0.11-0.59); Monocytes % (auto) 6.1 %; Neutrophils # (auto) 13.47 K/uL (1.4-6.5); Neutrophils % (auto) 88.5 %; Platelet Count 213 K/uL (130-400); RDW Coefficient of Variation 13.5 % (11.5-14.5); RDW Standard Deviation 44.5 fL (36.4-46.3); Red Blood Count 4.28 M/uL (4.7-6.1); White Blood Count 15.22 K/uL (4.8-10.8)
[2019-01-13 06:38] LABS: BUN Creatinine Ratio 15.7 (10-20); Calcium 8.8 mg/dl (8.5-10.1); Est GFR (Non-African American) 44.9; Potassium 4.1 mmol/L (3.5-5.1)
[2019-01-13] MEDS: FINASTERIDE 5 MG TAB PO SCH (08:40)
[2019-01-13] MEDS: PANTOprazole 40 MG TAB PO SCH (08:40)
[2019-01-13] MEDS: glipiZIDE 5 MG TAB PO SCH (08:41)
[2019-01-13] MEDS: METOPROLOL SUCC 25MG EXT REL TAB PO SCH (08:41)
[2019-01-13] MEDS: lisinopriL 40 MG TAB PO SCH (08:41)
[2019-01-13] MEDS: ASPIRIN 81 MG ECTAB PO SCH (08:42)
--- NOTE | 2019-01-13 09:00 | Internal Medicine Consult Note ---
Date of Consultation January 13, 2019 Assessment & Plan (1) CKD (chronic kidney disease), stage III: GFR and creat appear at [facility] (2) Lumbar canal stenosis: as per primary service (3) HTN (hypertension) with goal to be determined: B/P appears elevated. will monitor and defer to PCO. (4) Atrial fibrillation: paroxysmal a fib. currently in sinus. on xarelto as outpatient currently on hold. will defer to primary service as to when to resume anticoag. recommend 48-72 hours after surgery. (5) Hypercholesterolemia: recommend to continue home med (6) Vitamin D deficiency: recommend vit d as outpatient. medicine will sign off, History of Present Illness Attending Physician: Robby Alvarez, DO History of Present Illness Mr. Ramirez is a 73-year-old male with a history of Hypertension, Dyslipidemia, Type 2 Diabetes Mellitus, CKD, Paroxysmal Atrial Fibrillation(s/p prior cardioversions and an A-Fib Ablation 2010), and Recent Diagnosed Atrial Flutter with 4:1 Conduction (noted on preoperative EKG 12/26/2018). Patient is currently hospitalized with lumbar stenosis with neurogenic claudication. Patient had the following completed by Dr. Alvarez on 01/12: #1 removal of posterior instrumentation L4-5 per #2 exploration of fusion L4-5 per #3 lumbar decompression with bilateral medial facetectomies and foraminotomies L2-3 L3-4. #4 posterior spinal fusion L2-3 L3-4. #5 placement posterior instrumentation L2-3 L3-4 L4-5. #6 interbody fusion L2-3 and L3-4. #7 placed a peek cage 10 x 22 mm at L2-3 and L3-4. #8 placement of local autograft in the posterior lateral gutters per #9 placement infuse collagen sponge, master graft in the posterior lateral gutters and ostial amp and interbody spaces. Surgeon. Prior to the hospitalization, patient did not present with any cardiopulmanary symptoms such as: SOB, chest pain, nausea, elevated heart rate, orthopnea, PND. He denies any palpitations. Patient is compliant with his medications and has not had any adverse side effects. During the hospital stay, patient denies any new symptoms such as nausea, vomiting, diarrhea, chest pain, SOB. Allergies Allergy/AdvReac Type Severity Reaction Status Date / Time lactose Allergy Unknown GI UPSET Verified 09/27/19 06:37 No Known Drug Allergies Allergy Unknown NKDA Verified 01/12/19 06:37 Home Medications Home Medications Medication Instructions Recorded Confirmed Type amlodipine 5 mg PO HS 09/14/18 01/12/19 History aspirin [Aspir-81] 81 mg PO QAM 09/14/18 01/12/19 History cetirizine 10 mg PO HS 09/14/18 01/12/19 History cyanocobalamin (vitamin B-12) 1,000 mcg PO QPM 09/14/18 01/12/19 History [Vitamin B-12] finasteride 5 mg PO QAM 09/14/18 01/12/19 History lisinopril 40 mg PO QAM 09/14/18 01/12/19 History flash glucose scanning reader #1 ea 12/12/18 01/05/19 History flash glucose sensor kit #1 ea 12/12/18 01/05/19 History Xarelto 20 mg PO QPM 12/19/18 01/12/19 History fluticasone propionate [Flonase 2 sprays INTNAS 12/19/18 01/12/19 History Allergy Relief] metoprolol succinate 25 mg PO QAM 12/19/18 01/12/19 History pantoprazole 20 mg PO QAM 12/19/18 01/12/19 History simvastatin 20 mg PO QPM 12/19/18 01/12/19 History glipizide ER 5 mg tablet, extended 10 mg PO DAILY #180 tab 12/22/18 01/12/19 History release 24 hr Patient History Medical History Diabetic neuropathy Atrial fibrillation on xarelto Chronic kidney disease stage III Degenerative disc disease Diabetes mellitus, type 2 NIDDM GERD (gastroesophageal reflux disease) controlled Hyperlipidemia Hypertension Surgical History History of arthroscopy of right knee History of cardioversion History of esophagogastroduodenoscopy (EGD) History of left cataract surgery History of lumbar fusion History of wisdom tooth extraction History of cardiac radiofrequency ablation History of colonoscopy History of photorefractive keratectomy (PRK) Hx of LASIK Family History Father Stroke Social History Preferred Language: Wolof Communication Ability: Effective Visual Impairment: No Limitations Hearing Ability: Normal Base Ply Hand Required: No Beliefs That Will Affect Care: None marital status: Current Living Situation: Spouse current occupational status: retired Other Information That Helps Us Care for You: No Feels Safe at Home: Yes Safety Concerns: Feels Safe At This Time Smoking Status: Former smoker (Quit 50 years ago) Tobacco Type: cigarettes ; Do You Dip or Chew Tobacco: No ; Smoking End Date: Quit 50+ YEARS AGO ; Second Hand Exposure: No ; Tobacco Cessation Education Requested by Patient: No Hx Alcohol Use: Yes Alcohol type: wine Hx Substance Use: No Dental Care, Regularly: Yes Physical Activity Frequency: Does not Exercise Review of Systems Constitutional: no fever, no sweats and no body aches Eyes: no diplopia Ear, Nose, Mouth, Throat: no ear trauma Respiratory: no change in sputum Cardiovascular: no chest pain with activity and no radiating jaw, neck or arm pain Gastrointestinal: no bloating and no nausea Integumentary: no non-healing lesions Neurologic: no gait abnormality and no falls Psychiatric: no hopelessness Hematologic / Lymphatic: no coagulopathy Physical Exam Constitutional: WD/WN, vitals as above well developed ENMT: external ear and nose normal, oropharynx normal Respiratory: normal respiratory effort, lungs clear to auscultation Cardiovascular: RRR, no murmur, no edema Gastrointestinal (Abdomen): normal bowel sounds, soft, nontender, no hepatosplenomegaly Skin: no rashes, warm and dry Neurologic: PERRL, EOMI, accommodation nl, no face palsy, no dysarthria Results & Data Vital Signs (Past 12 Hours) Vital Signs Temp Pulse Pulse Resp BP BP Pulse Ox 01/13/19 08:04 36.6 C 82 16 180/93 H 98 01/13/19 03:51 36.5 C 63 16 172/70 H 99 01/13/19 00:04 36.8 C 63 18 168/89 H 100 PG Care Time/CCT Total # of Minutes Spent Total Time Spent with Patient: Total time spent is greater than 50% in coordination of care (as documented) at patient's floor/unit and/or counseling patient:
--- NOTE | 2019-01-13 09:01 | Orthopedic Progress Note ---
Date of Service January 13, 2019 Assessment & Plan (1) Lumbar stenosis with neurogenic claudication: Mr. Ramirez is doing fantastic. We will start physical therapy today. Maintain DEEPTHI drain. DVT prophylaxis is in the form of teds and SCDs. Continue with bowel regimen. Anticipate discharge home Tuesday. Supervising Physician Co-Signing Physician Notes Dr. Robby Alvarez Subjective Patient is postoperative day 1 lumbar fusion revision. He is doing great. He is sitting in a chair. No obvious distress. Leg symptoms greatly improved. Back pain is controlled. DEEPTHI drain output last shift was 25 cc. H&H is morning are 13.3 and 38.8 respectively. No new complaints. Review of Systems Review of Systems: All systems reviewed & are unremarkable except as noted in HPI & below Physical Exam Physical Exam: Alert and oriented x3. Sitting in a chair. No obvious distress. Calf soft nontender bilateral lower extremities. Strength is intact bilateral lower extremities. Lumbar dressing is clean dry and intact. Results & Data Vital Signs (Past 12 Hours) Vital Signs Temp Pulse Pulse Resp BP BP Pulse Ox 01/13/19 08:04 36.6 C 82 16 180/93 H 98 01/13/19 03:51 36.5 C 63 16 172/70 H 99 01/13/19 00:04 36.8 C 63 18 168/89 H 100
--- NOTE | 2019-01-13 10:16 | Pharmacy Report ---
Pharmacy Glycemic Short Note 2 - Date of Service January 13, 2019 - Glycemic Short BSG Results (Last 24 hours): 01/12/19 01/12/19 01/12/19 10:32 11:55 17:49 Glucose POC Glucose 149 H 179 H 276 H 01/12/19 01/12/19 01/13/19 20:39 23:54 03:48 Glucose POC Glucose 274 H 166 H 96 01/13/19 01/13/19 05:41 08:16 Glucose 79 POC Glucose 70 OUTPATIENT ANTIDIABETIC REGIMEN: * Glipizide 10 mg PO daily * A1c 8.0% (12/25/18) ASSESSMENT: * 73 yr old T2DM male POD #1 s/p lumbar fusion revision * Patient received 52 units of insulin yesterday * He was administered a one time dose of Lantus (0.4 units/kg) last evening to combat steroid induced hyperglycemia. Fasting BSG was below goal today, therefore Lantus was not ordered for this morning. * Novolog correction factor and carb ratio will be loosened to weight/stress 2 since patient received a single dose of dexamethasone pre-op - no ongoing steroids PLAN FOR INPATIENT GLYCEMIC CONTROL: * Hold outpatient oral diabetes medications * Basal insulin * Hold * Bolus insulin - loosen * NovoLog per scale ACHS or Q6hrs while NPO * Goal Range: Low 110 mg/dL - High 140 mg/dL * Correction Factor: 25 mg/dL/unit * Nutritional / Prandial insulin per carb ratio of 1 unit per 9 grams CHO consumed PLAN FOR DISCHARGE: * A1c of 8% is less than ideal * Consider increasing glipizide to 15 mg once daily
--- NOTE | 2019-01-13 14:11 | Anesthesiology Progress Note ---
Date of Service January 13, 2019 Anesthesia Post Procedure Vital Signs Vital Signs: Temp Pulse Pulse Resp BP BP Pulse Ox 01/13/19 13:05 152/74 H 01/13/19 11:59 36.7 C 62 16 188/75 H 98 01/13/19 09:46 163/78 H 01/13/19 08:04 36.6 C 82 16 180/93 H 98 01/13/19 03:51 36.5 C 63 16 172/70 H 99 01/13/19 00:04 36.8 C 63 18 168/89 H 100 01/12/19 20:07 62 163/81 H 01/12/19 19:29 36.5 C 66 17 179/83 H 100 01/12/19 14:12 36.6 C 64 16 157/73 H 98 Pain Intensity Back: Pain Intensity: 2 Notes Mental Status: alert / awake / arousable Patient Amnestic to Procedure: Yes Nausea / Vomiting: adequately controlled Pain: adequately controlled Airway Patency, RR, SpO2: stable & adequate BP & HR: stable & adequate Hydration State: stable & adequate Anesthetic Complications: no major complications apparent and Pt Satisfied with anesthetic care
[2019-01-13] MEDS: CARBOHYDRATES FOR HYPOGLYCEMIA PO PRN ×2 (17:08→17:25)
[2019-01-13] MEDS: AMLODIPINE BESYLATE 5 MG TAB PO SCH (21:37)
[2019-01-13] MEDS: DOCUSATE SODIUM/SENNA 50/8.6MG TAB PO SCH (21:38)
[2019-01-13] MEDS: CYANOCOBALAMIN 500 MCG TABLET (VITAMIN B-12) PO SCH (21:38)
[2019-01-13] MEDS: SIMVASTATIN 20 MG TAB PO SCH (21:39)
[2019-01-13] MEDS: CETIRIZINE HCL 10 MG TABLET PO SCH (21:40)
[2019-01-14] MEDS: ACETAMINOPHEN 500 MG TAB PO PRN ×2 (03:28→20:15)
[2019-01-14] MEDS: POLYETHYLENE (MIRALAX) 17 GM PACK PO SCH ×4 (05:49→23:26)
[2019-01-14 06:42] VITALS: TEMP 98.2
--- NOTE | 2019-01-14 08:18 | Orthopedic Progress Note ---
Date of Service January 14, 2019 Assessment & Plan (1) Lumbar stenosis with neurogenic claudication: Overall he is doing quite well. We will continue with physical therapy today. Continue with aggressive bowel regimen. DVT prophylaxis is in the form of teds and SCDs. Continue with pain control. Anticipate discharge home tomorrow. Supervising Physician Co-Signing Physician Notes Dr. Robby Alvarez Subjective Mr. Manzanares is postoperative day 2 lumbar decompression fusion. He is doing great. No radicular leg pain. He is up and ambulatory around the hallways. Yesterday in physical therapy ambulating 475 feet. He is passing flatus but no bowel movement yet. DEEPTHI drain output last shift was 75 cc. Overall doing well. Review of Systems Review of Systems: All systems reviewed & are unremarkable except as noted in HPI & below Physical Exam Physical Exam: He sitting in a chair. He is in obvious distress. Alert and oriented x3. Calf soft nontender bilateral lower extremities. Strength is intact bilateral lower extremity's. Lumbar dressing is clean dry and intact. Results & Data Vital Signs (Past 12 Hours) Vital Signs Temp Pulse Pulse Pulse Resp BP BP 01/14/19 06:41 36.8 C 61 16 148/77 H 01/13/19 23:17 37.1 C 60 12 153/74 H 01/13/19 21:36 57 L 164/75 H Pulse Ox 01/14/19 06:41 96 01/13/19 23:17 94 01/13/19 21:36
[2019-01-14] MEDS: INSULIN ASPART 100 UNITS/ML 3 ML PEN SC SCH ×4 (08:30→21:02)
[2019-01-14] MEDS: lisinopriL 40 MG TAB PO SCH (08:32)
[2019-01-14] MEDS: METOPROLOL SUCC 25MG EXT REL TAB PO SCH (08:32)
[2019-01-14] MEDS: FINASTERIDE 5 MG TAB PO SCH (08:32)
[2019-01-14] MEDS: PANTOprazole 40 MG TAB PO SCH (08:32)
[2019-01-14] MEDS: ASPIRIN 81 MG ECTAB PO SCH (08:32)
[2019-01-14] MEDS: OXYCODONE HCL IR 5 MG TAB (IMMEDIATE RELEASE) PO PRN ×2 (12:23→17:51)
--- NOTE | 2019-01-14 14:30 | Pharmacy Report ---
Pharmacy Glycemic Short Note 2 - Date of Service January 14, 2019 - Glycemic Short BSG Results (Last 24 hours): 01/13/19 01/13/19 01/13/19 17:04 17:24 17:43 POC Glucose 66 L* 67 L* 92 01/13/19 01/14/19 01/14/19 21:01 06:38 12:18 POC Glucose 112 H 95 119 H OUTPATIENT ANTIDIABETIC REGIMEN: * Glipizide 10 mg PO daily * A1c 8.0% (12/25/18) ASSESSMENT: 01/14: * Mr. Ramirez received 3 units of Novolog yesterday. Of note, he did receive a dose of glipizide in the morning. Glipizide has been placed on hold. * Patient has demonstrated excellent glycemic control. His BSGs are at the low end of his goal range. He had a BSG of 66 mg/dL yesterday around dinnertime. Novolog correction and carb coverage have been loosened to avoid further hypoglycemia. 01/13: * 73 yr old T2DM male POD #1 s/p lumbar fusion revision * Patient received 52 units of insulin yesterday * He was administered a one time dose of Lantus (0.4 units/kg) last evening to combat steroid induced hyperglycemia. Fasting BSG was below goal today, therefore Lantus was not ordered for this morning. * Novolog correction factor and carb ratio will be loosened to weight/stress 2 since patient received a single dose of dexamethasone pre-op - no ongoing steroids PLAN FOR INPATIENT GLYCEMIC CONTROL: * Hold outpatient oral diabetes medications * Basal insulin * Hold * Bolus insulin - loosen * NovoLog per scale ACHS or Q6hrs while NPO * Goal Range: Low 110 mg/dL - High 140 mg/dL * Correction Factor: 30 mg/dL/unit * Nutritional / Prandial insulin per carb ratio of 1 unit per 20 grams CHO consumed PLAN FOR DISCHARGE: * A1c of 8% is less than ideal * Consider increasing glipizide to 15 mg once daily
[2019-01-14] MEDS: AMLODIPINE BESYLATE 5 MG TAB PO SCH (20:17)
[2019-01-14] MEDS: CYANOCOBALAMIN 500 MCG TABLET (VITAMIN B-12) PO SCH (20:17)
[2019-01-14] MEDS: DOCUSATE SODIUM/SENNA 50/8.6MG TAB PO SCH (20:18)
[2019-01-14] MEDS: SIMVASTATIN 20 MG TAB PO SCH (20:18)
[2019-01-14] MEDS: CETIRIZINE HCL 10 MG TABLET PO SCH (20:18)
[2019-01-14 23:23] VITALS: O2SAT 96
--- NOTE | 2019-01-15 07:22 | Anesthesiology Progress Note ---
Date of Service January 15, 2019 Anesthesia Post Procedure Vital Signs Vital Signs: Temp Pulse Pulse Resp BP BP Pulse Ox 01/14/19 23:23 36.8 C 63 14 174/82 H 96 01/14/19 15:04 36.8 C 60 16 163/87 H 99 Pain Intensity Back: Pain Intensity: 5 Notes Mental Status: alert / awake / arousable and participated in evaluation Nausea / Vomiting: adequately controlled Pain: adequately controlled Airway Patency, RR, SpO2: stable & adequate BP & HR: stable & adequate Hydration State: stable & adequate
[2019-01-15] MEDS: ACETAMINOPHEN 500 MG TAB PO PRN (07:37)
[2019-01-15] MEDS: ASPIRIN 81 MG ECTAB PO SCH (08:56)
[2019-01-15] MEDS: PANTOprazole 40 MG TAB PO SCH (08:57)
[2019-01-15 08:59] VITALS: BP 146/81; PULSE 64
[2019-01-15] MEDS: lisinopriL 40 MG TAB PO SCH (08:59)
[2019-01-15] MEDS: METOPROLOL SUCC 25MG EXT REL TAB PO SCH (08:59)
[2019-01-15] MEDS: INSULIN ASPART 100 UNITS/ML 3 ML PEN SC SCH (09:05)
--- NOTE | 2019-01-15 09:29 | Discharge Summary ---
Date of Service January 15, 2019 Admission HPI Per Admitting Provider This is a 73-year-old male well-known to us that presents with chronic persistent back and bilateral leg pain. After failing extensive course of nonoperative care he is here for surgical intervention. Principal Diagnosis Lumbar spinal stenosis with neurogenic claudication Discharge Data Allergies Allergy/AdvReac Type Severity Reaction Status Date / Time lactose Allergy Unknown GI UPSET Verified 01/12/19 06:37 No Known Drug Allergies Allergy Unknown NKDA Verified 01/12/19 06:37 Consultations 01/12/19 11:44 Consult Case Management - Discharge Planning Routine Consult Hospitalist Routine Procedures Performed Operation Date: 01/12/19 07:45 Actual Procedures p L2-L5 Decompression and Fusion with Spinal Cord Monitoring(Not Applicable) - Robby Alvarez DO s L4-L5 Hardware Removal - Robby Alvarez DO Ordered Studies 01/12/19 07:45 FL fluoroscopy <1hr Routine FL lumbar spine 2-3V Routine Hospital Course (1) Lumbar stenosis with neurogenic claudication: Patient underwent lumbar decompression fusion tolerated as well as taken to orthopedic for postoperative. Postop day 1 is up and ambulating well. Progressive postop day #2. Postop day 3 DEEPTHI drain decreasing appropriately. Neurologically intact. Subsequently discharged home. Discharge orders instructions from the chart for further review. Total Time Total Time Spent Total Time Spent (In Minutes): 20 minutes Discharge Plan Discharge Items Patient Disposition: Home - Self-Care Reason For Visit: Spinal Stenosis, Lumbar Region Discharge Diagnosis: Lumbar spinal stenosis with neurogenic claudication Activity: Per Instructions section Non-emergency contact: Primary Care Provider Call non-emergency contact if: you have any medication questions Follow-up/Referrals: Lance Lagos DO [Primary Care Provider] - Diet: Regular Addtl Attending Provider Instructions: ACTIVITY RECOMMENDATIONS: SELF CARE INSTRUCTIONS AFTER THORACIC/LUMBAR FUSIONS 1. You may walk to your tolerance. It is good exercise for your legs and back. Expect some back and intermittent leg aches and pains. 2. You may perform "counter-top" level activities (make a sandwich, prosper with a project, etc.). 3. No bending or lifting of more than 10 pounds or back twisting of any nature (roll like a log when turning in bed). 4. You may ride in a car for 20-30 minutes at a time. No driving until after your first visit with your doctor. 5. Frequent changes of position and restricting sitting to 30 minutes at a time will help limit the amount of back spasms and stiffness you may experience. 6. You may discontinue the use of ambulatory aids (cane, crutches, etc.) once your strength and confidence allow. 7. You may director of counseling the shower and let water strike your incision when you arrive home at least once daily. Do not take a tub bath, sit in a hot tub or go into a swimming pool until after your first recheck in the office. SPECIAL CARE INSTRUCTIONS: VERY IMPORTANT TO READ AND REVIEW A. Your surgical incision has been closed with a cosmetic suture under the skin that will dissolve in about 6 weeks. In 14 days, you can use a pair of clean scissors and cut the suture that is left outside of the skin at the ends of your incision. 1. The small skin tapes can be removed 7 days after surgery if they have not fallen off by that point. 2. You may keep the wound open to air as much as possible to promote healing after post-op day number 5 unless told otherwise by your doctor. 3. If you think the wound looks like it is becoming infected (redness or worsening drainage) and/or you are experiencing fever, chill or worsening back pain and muscle spasms, contact the office so that we may evaluate you as soon as possible. B. Complications are uncommon, but please contact us if you have any signs or symptoms of: 1. wound infection (fever higher than 102.5 degrees F, redness, separation of wound, drainage, or increasing pain from the incision) 2. blood clots in legs (pain, swelling, redness and warmth in legs) 3. urinary tract infection (fever higher than 102.5 degrees F, burning upon urination or increased frequency of urination) 4. nerve problems (inability to walk on your toes or heels, numbness, loss of bowel or bladder control) 5. any other symptoms that concern you C. Please call the office at if you have any concerns or questions about your operation or recovery. D. No smoking! Smoking drastically decreases the chance of a solid fusion. E. Do not take any anti-inflammatory medications (Indocin, Advil, Motrin, Aspirin, Naprosyn, etc.) as these may inhibit the chance of a solid fusion. Tylenol is okay to take for pain. MANAGING PAIN AFTER SPINAL SURGERY 1. Narcotic medication is intended for short-term use and will be provided for surgical pain. Surgical pain usually lasts for a period of 4-6 weeks. Narcotic medication includes Percocet, Vicodin, Darvocet, Tylenol #3 or Lortab. 2. Longer-term pain is more appropriately treated with non-narcotic medication such as Tylenol ES. 3. Muscle spasm is not appropriately treated with narcotics. Muscle relaxers such as Soma, Flexeril or Skelaxin can be used along with Tylenol ES. 4. Remember that we all live with some "aches and pains". This is not unusual or uncommon after an injury or as we get older. a. Back pain is expected and may include muscle spasms for 4 to 6 weeks after surgery. The pain should gradually improve. If the pain worsens for no apparent reason, please contact the office. b. Intermittent leg pain may also be experienced and should not be concerned about unless it worsens for no apparent reason. If so, please contact the office. 5. We will provide appropriate medication within the normal guidelines of their prescribed use. We will also be very cautious and aware of potential abuse and extended duration of patients' medication needs. a. Pain medications are for your comfort and to assist with sleep and rest so that the tissue can heal. They are not provided in order to return to normal activity and should not be used through the day. To do so or worsening pain at night can result from ongoing tissue damage and development of tolerance to the prescribed medicine. 6. Please allow 2-3 days to process refills. Prescriptions will not be mailed but must be picked up at the office. FOLLOW UP VISIT: Keep your scheduled follow-up appointment. Any questions, please call the office at . Pending Studies at Discharge: No Stand-Alone Forms: My [facility] [employer]SEC[employer] Medications and DC Order Prescriptions: New tramadol 50 mg Tablet 50 mg PO Q4H PRN (Reason: Pain, Moderate) Qty: 30 RF: 0 oxycodone 5 mg Tablet 5 mg PO Q4H PRN (Reason: Pain, Severe) Qty: 30 RF: 0 Continued FreeStyle Loretta 14 Day [place] misc .ROUTE .MEDSUPPLY Qty: 1 RF: 0 FreeStyle [place] 14 Day Sensor kit .ROUTE .MEDSUPPLY Qty: 1 RF: 0 glipizide 5 mg tablet extended release 24hr 10 mg PO DAILY Qty: 180 RF: 0 cetirizine 10 mg Tablet 10 mg PO HS RF: 0 cyanocobalamin (vitamin B-12) [Vitamin B-12] 1,000 mcg Tablet 1,000 mcg PO QPM RF: 0 amlodipine 5 mg Tablet 5 mg PO HS RF: 0 aspirin [Aspir-81] 81 mg Tablet,Delayed Release (Dr/Ec) 81 mg PO QAM RF: 0 lisinopril 40 mg Tablet 40 mg PO QAM RF: 0 finasteride 5 mg Tablet 5 mg PO QAM RF: 0 pantoprazole 20 mg tablet,delayed release (DR/EC) 20 mg PO QAM RF: 0 simvastatin 20 mg tablet 20 mg PO QPM RF: 0 metoprolol succinate 25 mg tablet extended release 24 hr 25 mg PO QAM RF: 0 fluticasone propionate [Flonase Allergy Relief] 50 mcg/actuation spray,suspension 2 sprays INTNAS HS RF: 0 Xarelto 20 mg tablet 20 mg PO QPM RF: 0 Discharge Orders: Discharge Order (Routine); Ordered 01/15/19 Ordered By: Robby Alvarez Admission Data Admit Date/Time: 01/12/19 10:34 Attending Provider: Robby Alvarez Admit Provider: Robby Alvarez Primary Care Provider: Lance Lagos. Other Providers: Joaquim Anderson
[2019-01-15] MEDS: FINASTERIDE 5 MG TAB PO SCH (10:45)
== END 2019-01-15 11:31 | disposition home or self-care (01) | DRG 454 ==
LOC: ASU 06:09 → 3E 10:34